=== PATIENT | male | born 1985 | race Caucasian/White ===

== ENCOUNTER 2016-08-13 22:09 | Emergency (ER) | payer SELFPAY ==
[~2016-08-13] VITALS: Ht 162.6 cm; Wt 66.0 kg
[~2016-08-13 22:09] MED LIST: ACET500C5 PO
[2016-08-13 22:58] VITALS: Ht 162.6 cm; Wt 66.0 kg
[2016-08-14] MEDS ORDERED: LIDOCAINE 1% (MDV) 20 ML INJ SC ONE (00:30)
[2016-08-14] MEDS ORDERED: HYDROCODONE/APAP (5/325) TAB PO ONE (00:30)
[2016-08-14] MEDS ORDERED: DIPHTH/TET/ACEL PERTUSS (ADULT) 0.5 ML VIAL IM* ONE (00:30)
--- NOTE | 2016-08-14 00:43 | ERD ---
ER Documentation Chief Complaint Date/Time DATE: 08/14/16 TIME: 00:42 Chief Complaint Rt middle finger lac HPI 31 year old males presents to ER with CC of laceration over right 3rd digit. States that he was getting out of a car and slapped the door against his finger. Since then he has had constant pain and active bleeding over the tip of the finger. He currently rates his pain a 10/10 in severity, he did not take any medications for pain prior to arrival. He denies loss in ROM, numbness, and tingling. He does not recall his last tetanus vaccine. ROS All systems reviewed and are negative except as per history of present illness. Medications Home Meds Active Scripts Cephalexin* (Keflex*) 500 Mg Capsule, 500 MG PO QID for 7 Days, CAP Prov:NADEGE GORDON PA-C 08/15/16 Cephalexin* (Keflex*) 500 Mg Capsule, 500 MG PO QID for 7 Days, #28 CAP Prov:Yazmin Tracey PA-C 08/14/16 Naproxen* (Naprosyn*) 500 Mg Tablet, 500 MG PO BID Y for PAIN AND/OR INFLAMMATION, #30 TAB Prov:Yazmin TraceyC 08/14/16 Hydrocodone/Acetaminophen (Hosford 5-325 Tablet) 1 Each Tablet, 1 TAB PO Q6H Y for PAIN, #10 TAB Prov:Yazmin TraceyC 08/14/16 Acetaminophen* (Tylophen*) 500 Mg Capsule, 500 MG PO Q6H Y for PAIN, #20 TAB Prov:GERARDO DILLARD DO 02/20/15 Allergies Allergies: Coded Allergies: No Known Allergy (Unverified , 02/20/15) PMhx/Soc Medical and Surgical Hx: pt denies Medical Hx, pt denies Surgical Hx History of Surgery: No Anesthesia Reaction: No Hx Neurological Disorder: No Hx Respiratory Disorders: No Hx Cardiac Disorders: No Hx Psychiatric Problems: No Hx Miscellaneous Medical Probl: No Hx Alcohol Use: Yes (drinking etoh tonite) Hx Substance Use: No Hx Tobacco Use: No Smoking Status: Never smoker Physical Exam Vitals Physical Exam GENERAL: No acute distress and nontoxic. LUNGS: Clear to auscultation. No accessory muscle use. No wheezing, no crackles. No signs or symptoms of respiratory distress. HEART: Regular rate and rhythm. No murmurs, clicks, rubs or gallops. EXTREMITIES: There is no peripheral cyanosis or edema. Full range of motion, but pain with extension and flexion of 3rd right digit. Good capillary refill. 2 + radial pulses bilaterally. NEURO: The patient moves all 4 extremities with 5/5 strength. Sensation intact in BUE. Cranial nerves are grossly intact. Normal mental status for age. Good muscle tone. SKIN: 2 cm laceration in a semicircle shape over the palm surface of 3rd right digit, middle phalanx, with mild active bleeding and surrounding ecchymosis.There is no apparent rash, petechiae, erythema or swelling. Good skin turgor. Results 24 hrs Current Medications Medications (Trade) Dose Ordered Sig/Zakia Route PRN Reason Start Time Stop Time Status Last Admin Dose Admin Acetaminophen/ Hydrocodone Bitart ([place] (5/325)) 1 tab ONCE ONCE PO 08/14/16 00:30 08/14/16 00:31 DC 08/14/16 00:24 Diphtheria/ Tetanus/Acell Pertussis (Adacel) 0.5 ml ONCE ONCE IM* 08/14/16 00:30 08/14/16 00:31 DC 08/14/16 00:26 Lidocaine (Xylocaine 1% (Mdv) 20 ml) 20 ml ONCE ONCE SC 08/14/16 00:30 08/14/16 00:31 DC Ceftriaxone Sodium (Rocephin) 1 gm ONCE ONCE IM 08/14/16 02:00 08/14/16 02:01 DC 08/14/16 02:04 [place] [id number] Radiology Main Line: [phone] DIAGNOSTIC IMAGING REPORT Patient: GREGG DONOHUE : 1985 Age: 31 Sex: M MR #: [id number] DOS: 08/14/16 0004 Ordering MD: Yazmin Tracey PA-C Location: [facility] Room/Bed: PROCEDURE: XR finger. CLINICAL INDICATION: Post traumatic open wound. Right middle finger pain TECHNIQUE: PA, oblique and lateral views of the right middle finger were obtained. COMPARISON: None available. FINDINGS: Mineralization is within normal limits. Horizontal fracture lucency through the distal portion of the middle phalanx is present without extension to the articular surfaces. Joint spaces are preserved. Diffuse soft tissue gas about the middle phalanx is present with a defect along the volar aspect to with laceration. No retained radiopaque foreign body is present. RPTAT:HJJR IMPRESSION: Acute, nondisplaced extra-articular middle phalangeal fracture of the right middle finger with surrounding subcutaneous gas and soft tissue laceration. No evidence of retained radiopaque foreign body. Physician Barbara Date Time Electronically viewed and signed by Physician Barbara on 08/14/2016 00:46 JR/ CC: Yazmin Tracey PA-C Procedures/MDM Patient presented with ecchymosis and bleeding over 3rd right digit post trauma. I ordered an XR to rule out fracture. Patient does not recall last tetanus vaccine, I ordered one to be administered in the ER. On exam the patient has full ROM in the wrist and hand, however he has pain with flexion and extension of affected finger. The fingernail was intact with good cap refill and he has a 2+ radial pulse bilaterally. I have low suspicion for compartment syndrome and neurovascular compromise. Awaiting XR results prior to further management. XR results (interpretation by radiologist): IMPRESSION: Acute, nondisplaced extra-articular middle phalangeal fracture of the right middle finger with surrounding subcutaneous gas and soft tissue laceration. No evidence of retained radiopaque foreign body. I consulted with my supervising physician per protocol for patient's with open fracture. He stated that I could proceed to suture the laceration. In addition he suggested that I treat the patient with 1gm of Rocephin in the ER and provide a Rx for Keflex. Laceration Repair: - laceration was profusely irrigated with normal saline - anesthetized by digital block using 1% lidocaine without epi, 5cc - 5 simple interrupted sutures, with 4.0 prolene - bleeding controlled after closure, ROM, pulse and cap refill reassessed and all normal Patient was given IM Rocephin and Tdap in the ER, tolerated these medications well. Given a prescription for Keflex and Hosford, sedating effects of the med discussed. Strict return precautions discussed, and patient told to return to ER or a clinic for removal of sutures in 7 days. Patient stable for discharge and outpatient management. Departure Diagnosis: Primary Impression: Laceration Additional Impression: Open finger fracture Encounter type: initial encounter Finger: middle finger Phalanx: middle Fracture alignment: nondisplaced Laterality: right Qualified Code: S62.652B - Open nondisplaced fracture of middle phalanx of right middle finger, initial encounter Condition: Good Yazmin Tracey PA-C Aug 14, 2016 00:43
--- NOTE | 2016-08-14 00:46 | RADRPT ---
PROCEDURE: XR finger. CLINICAL INDICATION: Post traumatic open wound. Right middle finger pain TECHNIQUE: PA, oblique and lateral views of the right middle finger were obtained. COMPARISON: None available. FINDINGS: Mineralization is within normal limits. Horizontal fracture lucency through the distal portion of th e middle phalanx is present without extension to the articular surfaces. Joint spaces are preserved . Diffuse soft tissue gas about the middle phalanx is present with a defect along the volar aspect to with laceration. No retained radiopaque foreign body is present. RPTAT:HJJR IMPRESSION: Acute, nondisplaced extra-articular middle phalangeal fracture of the right middle finger with surro unding subcutaneous gas and soft tissue laceration. No evidence of retained radiopaque foreign body . Physician Barbara Date Time Electronically viewed and signed by Physician Barbara on 08/14/2016 00:46 /
[2016-08-14] MEDS ORDERED: CEPH-443 PO (01:50)
[2016-08-14] MEDS ORDERED: NAPR-260 PO (01:50)
[2016-08-14] MEDS ORDERED: HYDR-906 PO (01:50)
[2016-08-14] MEDS ORDERED: CEFTRIAXONE 1 GM INJ IM ONE (02:00)
[2016-08-15] MEDS ORDERED: CEPH-443 PO (16:49)
== END 2016-08-14 02:51 | disposition home or self-care (01) ==
LOC: FTE 22:09
DX: S61.212A Laceration without foreign body of right middle finger without damage to nail, initial encounter (principal); S62.652B Nondisplaced fracture of middle phalanx of right middle finger, initial encounter for open fracture; W22.8XXA Striking against or struck by other objects, initial encounter; Y92.9 Unspecified place or not applicable; Z23 Encounter for immunization
CPT/HCPCS: 12001; 73140; 90471; 90715; 96372; 99284; J0696

== ENCOUNTER 2016-08-15 16:18 | Emergency (ER) | payer MEDICAID ==
[~2016-08-15] VITALS: Wt 65.0 kg
[~2016-08-15 16:18] MED LIST changes: +CEPH-443 PO; +HYDR-906 PO; +NAPR-260 PO
[2016-08-15] MEDS ORDERED: CEPH-443 PO (16:49)
--- NOTE | 2016-08-17 07:11 | ERD ---
DATE OF SERVICE: 08/15/2016 HISTORY OF PRESENT ILLNESS: The patient is a 31-year-old male coming complaining of a wound check t o right hand. The patient was seen here 2 days ago after he slammed his fingers into a door. The p atient had x-rays done and had sutures placed. He did have a nondisplaced fracture. He has been we aring his brace. Patient is not complaining of any severe pain. He is right hand dominant. PAST MEDICAL HISTORY: Denies any other medical problems. ALLERGIES TO MEDICATIONS: Denies. PAST SURGICAL HISTORY: Denies. HOSPITALIZATIONS: Denies. IMMUNIZATIONS: Up to date on vaccinations and tetanus. REVIEW OF SYSTEMS: A 12-point review of systems was done. Refer to HPI for positives, all other sy stems negative. PHYSICAL EXAMINATION VITAL SIGNS: Temperature is 98.2, pulse 74, blood pressure is 118/74, respiratory 18, O2 saturation 99% on room air. Pain intensity 2/10. GENERAL: The patient is well-appearing, well-nourished, no acute distress. CHEST: Clear to auscultation bilaterally. There are no rales, wheezes or rhonchi. HEART: Regular rate and rhythm. No murmurs, clicks, rubs or gallops. No S3 or S4. EXTREMITIES: The patient has mild tenderness to palpation over the laceration site of the right disla nd. SKIN: There are sutures placed. There is no surrounding erythema, no dehiscence of the wound. No sausage finger noted. EMERGENCY ROOM COURSE: Site was cleaned and rebandaged. The patient was also given antibiotics to cover prophylactically for possible infection given that it is his fingers. DIAGNOSIS: Wound check, no infection. MEDICAL DECISION MAKING: I felt that patient should be covered for possible infection given his fin gers are source of injury. I felt that patient would benefit for possible coverage of infection. T he patient was given Keflex. I have low suspicion for deep space infection, low suspicion for tendo n or ligament injury; low suspicion for vascular injury. DISCHARGE: The patient is discharged stable. The patient is given prescription for Keflex and told to follow up with primary care within 1 to 2 days for reevaluation. The patient was told if sympto ms progress or worsen to return to the ER. All other questions answered at time of discharge. Disc harge summary given at the time of departure. The patient understood and complied with plan. Dictated By: KAY SARAVIA for DIAMOND ALBRECHT/DEBI Conf#: [id number] DID#: [id number]
== END 2016-08-15 16:50 | disposition home or self-care (01) ==
LOC: E/R 16:18
DX: Z48.01 Encounter for change or removal of surgical wound dressing (principal)
CPT/HCPCS: 99283

== ENCOUNTER 2016-08-20 16:53 | Emergency (ER) | payer MEDICAID ==
[~2016-08-20] VITALS: Wt 66.5 kg
--- NOTE | 2016-08-20 17:21 | ERD ---
ER Documentation Chief Complaint Date/Time DATE: 08/20/16 TIME: 17:19 Chief Complaint SUTURE REMOVAL ON RIGHT HAND NO INFECTIONS NOTED. HPI This is a 31-year-old male presenting to the emergency department for suture removal of a repaired laceration that occurred on his right middle finger 1 week ago when he slammed his fingers into a door. Patient had a nondisplaced fracture. Patient denies any fevers, increased pain or any other complications. ROS All systems reviewed and are negative except as per history of present illness. Medications Home Meds Active Scripts Cephalexin* (Keflex*) 500 Mg Capsule, 500 MG PO QID for 7 Days, CAP Prov:NADEGE GORDON PA-C 08/15/16 Cephalexin* (Keflex*) 500 Mg Capsule, 500 MG PO QID for 7 Days, #28 CAP Prov:Yazmin Tracey-C 08/14/16 Naproxen* (Naprosyn*) 500 Mg Tablet, 500 MG PO BID Y for PAIN AND/OR INFLAMMATION, #30 TAB Prov:Yazmin Tracey-C 08/14/16 Hydrocodone/Acetaminophen ([place] 5-325 Tablet) 1 Each Tablet, 1 TAB PO Q6H Y for PAIN, #10 TAB Prov:Yazmin Tracey-C 08/14/16 Acetaminophen* (Tylophen*) 500 Mg Capsule, 500 MG PO Q6H Y for PAIN, #20 TAB Prov:GERARDO DILLARD DO 02/20/15 Allergies Allergies: Coded Allergies: No Known Allergy (Unverified , 02/20/15) PMhx/Soc History of Surgery: No Anesthesia Reaction: No Hx Neurological Disorder: No Hx Respiratory Disorders: No Hx Cardiac Disorders: No Hx Psychiatric Problems: No Hx Miscellaneous Medical Probl: No Hx Alcohol Use: Yes (drinking etoh tonite) Hx Substance Use: No Hx Tobacco Use: No Physical Exam Vitals Vital Signs Date Time Temp Pulse Resp B/P Pulse Ox O2 Delivery O2 Flow Rate FiO2 08/20/16 17:06 98.4 64 20 110/58 98 Physical Exam General: WD/WN, in no apparent distress, non-toxic appearing HENT: NC/AT Eyes: Conjunctiva normal Neck: Supple Pulm: Normal labored breathing CV: Good capillary refill GI: Non-distended, no guarding Back: No masses Ext: No clubbing, cyanosis, or edema Neuro: Moves on all fours, no neuro deficits, sensation intact Skin: 2 repaired lacerations on the volar aspect of the right middle finger with sutures intact, no dehiscence or purulence or erythema Psych: Normal mood Procedures/MDM This is a 31-year-old male presenting to the emergency department for suture removal of a repaired laceration that occurred on his right middle finger 1 week ago. Patient does have a acute nondisplaced fracture of the right middle finger. On examination the sutures were intact, there was no evidence of dehiscence or cellulitis or flexor synovitis. On examination I believe it was too soon to remove the sutures therefore I discussed return in 5 days for suture removal. Patient is neurovascular intact for discharge to return in 5 days for suture removal. Discussed return sooner for any worsening signs or symptoms. I discussed to follow-up with orthopedic patient understands and agrees with plan Departure Diagnosis: Primary Impression: Suture check Condition: Stable Patient Instructions: Suture Care Additional Instructions: SUTURE REMOVAL:CONSULTE A ZELAYA MDICO PARA SACAR ZELAYA PUNTOS en 5 chan Regrese a estas instalaciones si no se mejora jacquelin esperbamos o jacquelin le dijimos. JOSEMANUEL UMANZOR PA-C Aug 20, 2016 17:21
== END 2016-08-20 17:12 | disposition home or self-care (01) ==
LOC: E/R 16:53
DX: Z48.01 Encounter for change or removal of surgical wound dressing (principal)
CPT/HCPCS: 99281

== ENCOUNTER 2016-08-26 17:41 | Emergency (ER) | payer MEDICAID ==
[~2016-08-26] VITALS: Ht 154.9 cm; Wt 64.0 kg
[2016-08-26 17:58] VITALS: Ht 154.9 cm; Wt 64.0 kg
--- NOTE | 2016-08-27 03:23 | ERD ---
ER Documentation Chief Complaint Date/Time DATE: 08/27/16 TIME: 03:13 Chief Complaint HERE FOR SUTURE REMOVAL OF RIGHT 3RD FINGER HPI This is a 31-year-old male with no significant past medical history presents the ED for a suture removal of his right third finger. States that he is right- handed. States that he has to close the truck door onto his finger previously. Denies any fever, chills, loss of sensation, loss of range of motion. States that he has been taking his antibiotics consistently. Denies any recent pain, swelling, redness, numbness or tingling, weakness. ROS All systems reviewed and are negative except as per history of present illness. Medications Home Meds Active Scripts Cephalexin* (Keflex*) 500 Mg Capsule, 500 MG PO QID for 7 Days, CAP Prov:NADEGE GORDON-C 08/15/16 Cephalexin* (Keflex*) 500 Mg Capsule, 500 MG PO QID for 7 Days, #28 CAP Prov:Yazmin TraceyC 08/14/16 Naproxen* (Naprosyn*) 500 Mg Tablet, 500 MG PO BID Y for PAIN AND/OR INFLAMMATION, #30 TAB Prov:Yazmin Tracey-C 08/14/16 Hydrocodone/Acetaminophen ([place] 5-325 Tablet) 1 Each Tablet, 1 TAB PO Q6H Y for PAIN, #10 TAB Prov:Yazmin Tracey-C 08/14/16 Acetaminophen* (Tylophen*) 500 Mg Capsule, 500 MG PO Q6H Y for PAIN, #20 TAB Prov:GERARDO DILLARD DO 02/20/15 Allergies Allergies: Coded Allergies: No Known Allergy (Unverified , 02/20/15) PMhx/Soc History of Surgery: No Anesthesia Reaction: No Hx Neurological Disorder: No Hx Respiratory Disorders: No Hx Cardiac Disorders: No Hx Psychiatric Problems: No Hx Miscellaneous Medical Probl: No Hx Alcohol Use: Yes (drinking etoh tonite) Hx Substance Use: No Hx Tobacco Use: No Physical Exam Vitals Vital Signs Date Time Temp Pulse Resp B/P Pulse Ox O2 Delivery O2 Flow Rate FiO2 08/26/16 17:58 69 18 132/78 99 Physical Exam Const: [id number], well-nourished. In no acute distress. Head: Atraumatic, normocephalic Eyes: Normal Conjunctiva without injection ENT: Normal external ear, nose and mouth. Neck: Full range of motion. No meningismus. Resp: Clear to auscultation bilaterally. No wheezing, rhonchi, rales, or crackles. No accessory muscle use. No retractions. Cardio: Regular rate and rhythm, no murmurs Skin: No petechiae or rashes Back: No midline tenderness. No CVA tenderness. Ext: No cyanosis, or edema. Cap refill less than 2 seconds. Distal pulses intact bilaterally. 6 sutures started of the right volar aspect of the right middle finger. No edema, purulent discharge, erythema. Neur: Awake and alert. Normal gait and coordination. Muscle strength 5/5. Sensation intact bilaterally. Psych: Normal Mood and Affect Procedures/MDM This is a 31-year-old male with no significant past medical history presents the ED for suture removal. Patient is afebrile and nontoxic-appearing. Patient has normal vital signs. Patient to return to the ED was taken was 97.6. 6 sutures were removed without difficulty at this type of the volar aspect of right middle finger. Low suspicion for cellulitis, deep space infection, sepsis. Patient was instructed to follow-up with orthopedic physician for further treatment for this fracture that he has not followed up with you. Instructed patient to return to the ED sooner for any worsening symptoms. Patient's questions were answered. Patient understood and agreed with discharge plan. Patient discharged stable. Departure Diagnosis: Primary Impression: Encounter for removal of sutures Condition: Stable Patient Instructions: Suture Removal, No Complication Referrals: [facility] YOU HAVE RECEIVED A MEDICAL SCREENING EXAM AND THE RESULTS INDICATE THAT YOU DO NOT HAVE A CONDITION THAT REQUIRES URGENT TREATMENT IN THE EMERGENCY DEPARTMENT. FURTHER EVALUATION AND TREATMENT OF YOUR CONDITION CAN WAIT UNTIL YOU ARE SEEN IN YOUR DOCTORS OFFICE WITHIN THE NEXT 1-2 DAYS. IT IS YOUR RESPONSIBILITY TO MAKE AN APPOINTMENT FOR FOLOW-UP CARE. IF YOU HAVE A PRIMARY DOCTOR --you should call your primary doctor and schedule an appointment IF YOU DO NOT HAVE A PRIMARY DOCTOR YOU CAN CALL OUR PHYSICIAN REFERRAL HOTLINE AT IF YOU CAN NOT AFFORD TO SEE A PHYSICIAN YOU CAN CHOSE FROM THE FOLLOWING [facility] [address] [facility]. [facility] [address] [facility] [facility] [address] [facility] [address] [facility]. [facility] [address] [facility]. [facility] [address] [facility]. [facility] YOU HAVE RECEIVED A MEDICAL SCREENING EXAM AND THE RESULTS INDICATE THAT YOU DO NOT HAVE A CONDITION THAT REQUIRES URGENT TREATMENT IN THE EMERGENCY DEPARTMENT. FURTHER EVALUATION AND TREATMENT OF YOUR CONDITION CAN WAIT UNTIL YOU ARE SEEN IN YOUR DOCTORS OFFICE WITHIN THE NEXT 1-2 DAYS. IT IS YOUR RESPONSIBILITY TO MAKE AN APPOINTMENT FOR FOLOW-UP CARE. IF YOU HAVE A PRIMARY DOCTOR --you should call your primary doctor and schedule and appointment IF YOU DO NOT HAVE A PRIMARY DOCTOR YOU CAN CALL OUR PHYSICIAN REFERRAL HOTLINE AT . IF YOU CAN NOT AFFORD TO SEE A PHYSICIAN YOU CAN CHOSE FROM THE FOLLOWING [facility] INSTITUTIONS: [facility] [address] [place] [address] [facility] [address] [place] [address] [facility] [address] [place] [address] [facility] Urgent Care 7 a.m.- 11 p.m. Every Day of the Week NO APPOINTMENT OR AUTHORIZATION NEEDED [facility] Hours: Mon-Fri 9:00 AM - 5:00 PM Additional Instructions: Seguimiento con mdico para la remisin al mdico ortopdico Regrese a estas instalaciones si no se mejora jacquelin esperbamos o jacquelin le henri. ABRAHAM FUENTES PA-C Aug 27, 2016 03:23
== END 2016-08-26 18:48 | disposition home or self-care (01) ==
LOC: E/R 17:41
DX: Z48.02 Encounter for removal of sutures (principal)
CPT/HCPCS: 99281